=== PATIENT | male | born 1950 ===

== ENCOUNTER 2017-06-01 14:17 | Emergency (ER) | payer MEDICAID ==
[2017-06-01 14:40] VITALS: O2SAT 95
[2017-06-01 15:24] LABS: BASO % 0.2 % (0.0-2.0); EOS % 0.2 % (0.0-4.0); HEMATOCRIT 42.8 % (35.0-51.0); LYMPH % 19.1 % (20.0-40.0); MEAN CELL VOLUME 88.9 fL (80.0-94.0); MEAN CORPUSCULAR HEMOGLOBIN 30.2 pg (27.0-31.0); MEAN PLATELET VOLUME 8.2 fL (7.2-11.7); MONO # 0.5 K/uL (0.0-0.8); NRBC % 0.1 % (0.0-2.0); WHITE BLOOD COUNT 5.4 K/uL (4.8-10.8)
[2017-06-01 15:35] LABS: CHLORIDE 103 mmol/L (98-107)
[2017-06-01 15:36] LABS: POTASSIUM 3.8 mmol/L (3.6-5.2); SODIUM 141 mmol/L (132-148)
[2017-06-01 15:38] LABS: ALB/GLOB RATIO 1.2 (1.0-2.1); AST/SGOT 30 U/L (17-59); BILIRUBIN,TOTAL 1.4 mg/dL (0.2-1.3); CARBON DIOXIDE 25 mmol/L (22-30); GFR AFRICAN-AMERICAN > 60; TOTAL PROTEIN 6.7 g/dL (6.3-8.3)
[2017-06-01 15:39] LABS: ALKALINE PHOSPHATASE 49 U/L (38-126); ALT/SGPT 39 U/L (21-72); BLOOD UREA NITROGEN 20 mg/dL (9-20); GLUCOSE,RANDOM 107 mg/dL (75-110)
[2017-06-01 15:52] LABS: RBC URINE 2 /hpf (0-3); URINE BILIRUBIN NEGATIVE (NEGATIVE); URINE BLOOD NEGATIVE (NEGATIVE); URINE COLOR Yellow (YELLOW); URINE GLUCOSE (UA) NORMAL (Normal); URINE KETONE NEGATIVE (NEGATIVE); URINE LEUKOCYTE ESTERASE NEG Leu/uL (Negative); URINE PROTEIN NEGATIVE (NEGATIVE); URINE UROBILINOGEN NORMAL mg/dL (0.2-1.0); WBC URINE 1 /hpf (0-5)
[2017-06-01] MEDS ORDERED: Sodium Chloride 0.9% 500 ML IV ONE ×2 (16:02→16:19)
--- NOTE | 2017-06-01 16:11 | C.PDOC ---
History Of Present Illness 66 y/o male presents to ED with complaints of cramping abdominal pain since this morning that worsens with movement and with BMs. Patient denies fever, nausea, vomiting, diarrhea, dysuria, hematuria, sob, chest pain. Time Seen by Provider: 06/01/17 14:48 Chief Complaint (Nursing): Abdominal Pain History Per: Patient History/Exam Limitations: no limitations Onset/Duration Of Symptoms: Hrs Current Symptoms Are (Timing): Still Present Severity: Mild Past Medical History Reviewed: Historical Data, Nursing Documentation, Vital Signs Vital Signs: Last Vital Signs Temp 98.1 F 06/01/17 17:35 Pulse 59 L 06/01/17 17:35 Resp 20 06/01/17 17:35 BP 97/66 L 06/01/17 17:35 Pulse Ox 95 06/01/17 17:35 - Medical History PMH: HTN Family History: States: No Known Family Hx - Social History Hx Alcohol Use: No Hx Substance Use: No - Immunization History Hx Tetanus Toxoid Vaccination: No Hx Influenza Vaccination: No Hx Pneumococcal Vaccination: No Review Of Systems Except As Marked, All Systems Reviewed And Found Negative. Constitutional: Negative for: Fever, Chills Cardiovascular: Negative for: Chest Pain, Palpitations Respiratory: Negative for: Shortness of Breath Gastrointestinal: Positive for: Abdominal Pain. Negative for: Nausea, Vomiting , Diarrhea Genitourinary: Negative for: Dysuria, Hematuria Skin: Negative for: Rash Physical Exam - Physical Exam Appears: Well, Non-toxic, No Acute Distress Skin: Normal Color, Warm, Dry, No Rash Oral Mucosa: Moist Cardiovascular: Rhythm Regular Respiratory: Normal Breath Sounds, No Rales, No Rhonchi, No Wheezing Gastrointestinal/Abdominal: Bowel Sounds, Soft, Tenderness (mild TTP at epigastric and suprapubic areas), No Distention, No Guarding, No Rebound Back: Normal Inspection, No CVA Tenderness Neurological/Psych: Oriented x3 ED Course And Treatment - Laboratory Results Result Diagrams: 06/01/17 15:16 06/01/17 15:16 O2 Sat by Pulse Oximetry: 95 (RA) Pulse Ox Interpretation: Normal Progress Note: Blood work and UA ordered and reviewed. Patient given IV NS bolus, IV toradol. Reevaluation Time: 17:30 Reassessment Condition: Improved (On reassessment, patient is resting comfortably, in no pain/distress. ON exam, abdomen is soft and nontender. Blood work and UA unremarkable. Patient given Rx for bentyl, and was instructed to follow up with PMD/clinic in 1-2 days. He understands he should return to ED if symptoms worsen.) Disposition Counseled Patient/Family Regarding: Studies Performed, Diagnosis, Need For Followup, Rx Given - Disposition Referrals: [facility] at [facility] [Outside] Disposition: HOME/ ROUTINE Disposition Time: 17:30 Condition: STABLE Prescriptions: Dicyclomine [Bentyl] 20 mg PO Q6 PRN #15 tab PRN Reason: ABDOMINAL CRAMPING Instructions: Acute Diarrhea (ED), Abdominal Pain (ED) Forms: [employer] (Kinyarwanda) Print Language: IVORIAN - POA Present On Arrival: None - Clinical Impression Clinical Impression: Abdominal cramping - PA / CLINICAL SERVICES MANAGER / Resident Statement MD/DO has examined the patient and agrees with the treatment plan. - Scribe Statement The provider has reviewed the documentation as recorded by the Renaeibnaresh Carrillo All medical record entries made by the Zofia were at my direction and personally dictated by me. I have reviewed the chart and agree that the record accurately reflects my personal performance of the history, physical exam, medical decision making, and the department course for this patient. I have also personally directed, reviewed, and agree with the discharge instructions and disposition.
[2017-06-01 17:36] VITALS: BP 97/66; PULSE 59; RESP 20; TEMP 98.1
== END 2017-06-01 17:35 | disposition home or self-care (01) ==
LOC: C.ER 14:17
DX: R10.13 Epigastric pain (principal)
CPT/HCPCS: 80053; 81001; 83690; 85025; 96374; 99284; J1885; J7040

== ENCOUNTER 2018-04-26 21:05 | Inpatient (IN) | payer MEDICARE, MEDICAID ==
[2018-04-26] MEDS ORDERED: Sodium Chloride 0.9% 1,000 ML IV ONE (22:16)
--- NOTE | 2018-04-26 22:16 | C.PDOC ---
History Of Present Illness Patient presents to the ER with a complaint of intermittent abdominal pain for the past week that has worsened over the past 3 days. Denies fever, chills, nausea, or vomiting. Time Seen by Provider: 04/26/18 22:15 Chief Complaint (Nursing): Abdominal Pain History Per: Patient History/Exam Limitations: no limitations Onset/Duration Of Symptoms: Days, Intermittent Episodes Current Symptoms Are (Timing): Still Present Context: Other Severity: Moderate Pain Scale Rating Of: 4 Location Of Pain/Discomfort: RUQ Quality Of Discomfort: Unable To Describe Associated Symptoms: denies: Fever, Chills, Nausea, Vomiting Exacerbating Factors: None Alleviating Factors: None Recent travel outside of the [place]: No Additional History Per: Family Past Medical History Reviewed: Historical Data, Nursing Documentation, Vital Signs Vital Signs: Last Vital Signs Temp 98.5 F 04/27/18 00:19 Pulse 74 04/27/18 00:19 Resp 20 04/27/18 00:19 BP 138/73 04/27/18 00:19 Pulse Ox 95 04/27/18 00:19 - Medical History PMH: HTN Family History: States: No Known Family Hx - Social History Hx Alcohol Use: No Hx Substance Use: No - Immunization History Hx Tetanus Toxoid Vaccination: No Hx Influenza Vaccination: No Hx Pneumococcal Vaccination: No Review Of Systems Constitutional: Negative for: Fever, Chills Cardiovascular: Negative for: Chest Pain, Palpitations Respiratory: Negative for: Cough, Shortness of Breath Gastrointestinal: Positive for: Abdominal Pain. Negative for: Nausea, Vomiting Musculoskeletal: Negative for: Neck Pain Neurological: Negative for: Weakness, Numbness Psych: Negative for: Anxiety Physical Exam - Physical Exam Appears: Non-toxic Skin: Warm, Dry Head: Normacephalic Eye(s): bilateral: Normal Inspection Oral Mucosa: Moist Neck: Supple Chest: Symmetrical, No Tenderness Cardiovascular: Rhythm Regular Respiratory: No Rales, No Rhonchi, No Wheezing Gastrointestinal/Abdominal: Soft, Tenderness (RUQ), No Guarding, No Rebound Back: Normal Inspection Extremity: Normal ROM Extremity: Bilateral: Atraumatic Neurological/Psych: Oriented x3 Gait: Steady ED Course And Treatment - Laboratory Results Result Diagrams: 04/26/18 22:23 04/26/18 22:23 O2 Sat by Pulse Oximetry: 96 (room air) Pulse Ox Interpretation: Normal Progress Note: EKG, blood work, and urinalysis ordered. Protonix and IV fluids administered. Disposition Discussed With Dr.: Siva Edmondson Comment: acceptd the pt on and took over the care at 2:30 AM Doctor Will See Patient In The: Hospital Counseled Patient/Family Regarding: Studies Performed, Diagnosis - Disposition Referrals: Siva Edmondson MD [Primary Care Provider] - Disposition: HOSPITALIZED Disposition Time: 22:16 Condition: FAIR Forms: [employer] (Turkmen) - POA Present On Arrival: None - Clinical Impression Clinical Impression: Abdominal pain, Acute cholecystitis - Scribe Statement The provider has reviewed the documentation as recorded by the Scribe Flavio Chery All medical record entries made by the Scribe were at my direction and personally dictated by me. I have reviewed the chart and agree that the record accurately reflects my personal performance of the history, physical exam, medical decision making, and the department course for this patient. I have also personally directed, reviewed, and agree with the discharge instructions and disposition. Decision To Admit - Pt Status Changed To: Hospital Disposition Of: Inpatient - Admit Certification Admit to Inpatient:: After my assessment, the patient will require hospitalization for at least two midnights. This is because of the severity of symptoms shown, intensity of services needed, and/or the medical risk in this patient being treated as an outpatient. - InPatient: Physician Admission Certification:: After my assessment, the patient will require hospitalization for at least two midnights. This is because of the severity of symptoms shown, intensity of services needed, and/or the medical risk in this patient being treated as an outpatient. - . Bed Request Type: Regular Patient Diagnosis: Abdominal pain, Acute cholecystitis
[2018-04-26 22:29] LABS: BASO % 0.7 % (0.0-2.0); EOS % 0.6 % (0.0-4.0); LYMPH # 1.8 K/uL (1.0-4.3); LYMPH % 31.1 % (20.0-40.0); MEAN CELL VOLUME 90.7 fL (80.0-94.0); MEAN CORPUSCULAR HEMOGLOBIN 30.6 pg (27.0-31.0); MEAN CORPUSCULAR HGB CONC 33.7 g/dL (33.0-37.0); MEAN PLATELET VOLUME 8.3 fL (7.2-11.7); MONO # 0.5 K/uL (0.0-0.8); MONO % 9.5 % (0.0-10.0); NEUT # 3.3 K/uL (1.8-7.0); NEUT % 58.1 % (50.0-75.0); RBC 4.57 Mil/uL (4.40-5.90); RED CELL DISTRIBUTION WIDTH 13.5 % (11.5-14.5); WHITE BLOOD COUNT 5.7 K/uL (4.8-10.8)
[2018-04-26 22:38] LABS: INR 1.1; PROTHROMBIN TIME 11.6 SECONDS (9.7-12.2)
[2018-04-26 23:17] LABS: URINE AMORPHOUS SEDIMENT RARE /ul (<OCC); URINE BILIRUBIN NEGATIVE (NEGATIVE); URINE BLOOD NEGATIVE (NEGATIVE); URINE CLARITY Hazy (Clear); URINE COLOR Amber (YELLOW); URINE GLUCOSE (UA) NORMAL (Normal); URINE LEUKOCYTE ESTERASE NEG Leu/uL (Negative); URINE PROTEIN NEGATIVE (NEGATIVE)
[2018-04-26 23:48] LABS: ALB/GLOB RATIO 1.3 (1.0-2.1); ALBUMIN 3.8 g/dL (3.5-5.0); BLOOD UREA NITROGEN 18 mg/dL (9-20); CALCIUM 9.1 mg/dl (8.6-10.4); GFR AFRICAN-AMERICAN > 60; GFR NON-AFRICAN AMERICAN > 60
[2018-04-26 23:49] LABS: ALT/SGPT 871 U/L (21-72); AST/SGOT 822 U/L (17-59); LIPASE 105 U/L (23-300)
[2018-04-27] MEDS ORDERED: Iodixanol 320 MG/ML 100 ML BOTTLE IV ONE (00:32)
[2018-04-27] MEDS: Dextrose 5%/0.9% NS 1,000 ML IV SCH ×2 (02:47→18:03)
[2018-04-27] MEDS ORDERED: Dextrose 5%/0.9% NS 1,000 ML IV ONE (02:51)
[2018-04-27] MEDS ORDERED: (Novolin R) Insulin Human Regular 100 units/ml vial SC SCH (07:30)
--- NOTE | 2018-04-27 07:48 | CP.PCM.PN ---
Subjective - Date & Time of Evaluation Date of Evaluation: 04/27/18 Time of Evaluation: 07:47 - Subjective Subjective: cw acute cholecystitis bilirubin up to 2.2 hida ordered will plan odell gb Objective - Vital Signs/Intake and Output Vital Signs (last 24 hours): Temp Pulse Resp BP Pulse Ox 97.4 F L 56 L 20 145/79 96 04/27/18 03:43 04/27/18 03:43 04/27/18 03:43 04/27/18 03:43 04/27/18 03:43 - Medications Medications: Current Medications Brimonidine Tartrate (Alphagan 0.2% Opht) 1 ml OU BID [facility] Home Med (Amlodipine) 5 mg PO DAILY [facility] Home Med (Losartan) 50 mg PO DAILY [facility] Dextrose/Sodium Chloride (Dextrose 5%/0.9% Ns 1000 Ml) 1,000 mls @ 80 mls/hr IV .[id number] [facility] Last Admin: 04/27/18 02:47 Dose: 80 mls/hr Insulin Human Regular (Novolin R) 1 unit SC ACHS LAURA PRN Reason: Protocol Last Admin: 04/27/18 07:43 Dose: Not Given Metformin HCl (Glucophage Xr) 750 mg PO DAILY [facility] Morphine Sulfate (Morphine) 2 mg IVP Q4H PRN PRN Reason: Pain, moderate (4-7) Last Admin: 04/27/18 02:54 Dose: 2 mg Pantoprazole Sodium (Protonix Inj) 40 mg IVP DAILY [facility] - Labs Labs: 04/26/18 22:23 04/26/18 22:23 PT 11.6 SECONDS (9.7-12.2) 04/26/18 22:23 INR 1.1 04/26/18 22:23 APTT 29 SECONDS (21-34) 04/26/18 22:23
--- NOTE | 2018-04-27 08:17 | CT ---
Date of service: 04/27/2018 PROCEDURE: CT Abdomen and Pelvis without intravenous contrast HISTORY: Right upper quadrant abdominal pain. Elevated liver enzymes. COMPARISON: None. TECHNIQUE: Multiple contiguous axial images were performed through the abdomen and pelvis with the use of intravenous contrast. Subsequently, sagittal and coronal reformatted images were obtained. Radiation dose: Total exam DLP = 603 mGy-cm. This CT exam was performed using one or more of the following dose reduction techniques: Automated exposure control, adjustment of the mA and/or kV according to patient size, and/or use of iterative reconstruction technique. FINDINGS: LOWER THORAX: Bibasilar infiltrates with areas of hyperlucency and peribronchial cuffing present consistent with atelectasis or pneumonia with possible bronchitis. Clinical correlation. Right lower lobe pneumatocele. Cardiomegaly. Small hiatal hernia. LIVER: Enlarged fatty liver. GALLBLADDER AND BILE DUCTS: Contracted gallbladder with gallbladder wall thickening and pericholecystic fluid. Clinical correlation. PANCREAS: Unremarkable. No gross lesion or ductal dilatation. SPLEEN: Splenic calcification. ADRENALS: Unremarkable. No mass. KIDNEYS AND URETERS: Bilateral renal hypodensities, too small to adequately characterize. VASCULATURE: Unremarkable. No aortic aneurysm. BOWEL: Nonspecific fluid-filled stomach and small bowel loops. This may represent an ileus versus gastroenteritis/ enterirtis versus slow transit versus peristalsis. Clinical correlation. Diverticulosis. APPENDIX: Appendix is seen and is top normal in thickness measuring 9 millimeters. Clinical correlation. PERITONEUM: Unremarkable. No free fluid. No free air. LYMPH NODES: Unremarkable. No enlarged lymph nodes. BLADDER: Partially distended urinary bladder with bladder wall thickening. Correlation with urinalysis is recommended. REPRODUCTIVE: Enlarged prostate gland with calcification. BONES: No acute fracture. OTHER FINDINGS: Bilateral fat containing inguinal hernias. Fat containing umbilical hernia. Possibly urachal remnant. IMPRESSION: 1. Contracted gallbladder with gallbladder wall thickening and pericholecystic fluid. Clinical correlation. If there is concern for acute cholecystitis, consider correlation with right upper quadrant abdominal ultrasound. 2. Enlarged fatty liver. 3. Mildly prominent appendix measuring 9 millimeters. Clinical correlation. Continued interval follow-up is recommended clinically indicated. 4. Partially distended urinary bladder with bladder wall thickening. Clinical correlation. 5. Enlarged prostate gland with calcification. 6. Bibasilar infiltrates with areas of hyperlucency and peribronchial cuffing present consistent with atelectasis or pneumonia with possible bronchitis. Clinical correlation. Right lower lobe pneumatocele. Cardiomegaly. 7. Small hiatal hernia. Additional findings as above. These findings were preliminarily reported at 1:33 a.m. on 04/27/[address] Yordan Maurer from [facility].
--- NOTE | 2018-04-27 09:45 | US ---
Date of service: 04/27/2018 HISTORY: ELEVATED LIVER PANEL, ACUTE CHOLECYSTITIS COMPARISON: April 27, 2018. CT abdomen and pelvis. TECHNIQUE: Sonographic evaluation of the right upper quadrant of the abdomen. FINDINGS: LIVER: Measures 10.7 cm in length. Hepatopedal blood flow. Fatty infiltration manifest ultrasonographically as increased echogenicity of the liver parenchyma. No mass. No intrahepatic bile duct dilatation. GALLBLADDER: Collapse, contracted Gallbladder accentuating gallbladder wall thickness. No gallstones or pericholecystic fluid. Sonographic Kelsey sign was not elicited. COMMON BILE DUCT: Measures 3.4 mm. No stones. No dilatation. PANCREAS: Unremarkable as visualized. No mass. No ductal dilatation. RIGHT KIDNEY: Measures 5 x 10.1 cm in length. Normal echogenicity. No calculus, mass, or hydronephrosis. AORTA: No aneurysmal dilatation. IVC: Unremarkable. OTHER FINDINGS: None . IMPRESSION: Contracted gallbladder accentuating gallbladder wall thickness. No acute gallbladder abnormalities. Hepatic steatosis. No focal masses. No intrahepatic bile duct dilatation or perihepatic ascites.
[2018-04-27] MEDS: Brimonidine 0.2% Opth Sol (5ml) OU SCH ×2 (10:39→21:52)
--- NOTE | 2018-04-27 10:42 | NM ---
Date of service: 04/27/2018 PROCEDURE: Nuclear Medicine Hepatobiliary Scan HISTORY: cholecystitis with elevated bilirubin COMPARISON: April 27, 2018. Abdominal ultrasound TECHNIQUE: 6.1 mCi of technetium 99m Mebrofenin was administered intravenously. Planar images of the abdomen were obtained at 5 min intervals to 60 mins. Delayed images were also obtained. FINDINGS: LIVER: Timely and homogenous uptake. COMMON BILE DUCT: identified at 15 mins. GALLBLADDER: identified at 15 mins. SMALL BOWEL: Identified at 65 mins. IMPRESSION: Normal Hepatobiliary Scan. The cystic duct is patent.
[2018-04-27] MEDS: (Novolin R) Insulin Human Regular 100 units/ml vial SC SCH ×3 (12:00→21:42)
--- NOTE | 2018-04-27 12:21 | CP.PCM.PN ---
Subjective - Date & Time of Evaluation Date of Evaluation: 04/27/18 Time of Evaluation: 12:20 - Subjective Subjective: follow up studies no gall stones on US Hida normal no plans for OR Objective - Vital Signs/Intake and Output Vital Signs (last 24 hours): Temp Pulse Resp BP Pulse Ox 97.4 F L 53 L 20 127/78 95 04/27/18 07:00 04/27/18 07:00 04/27/18 07:00 04/27/18 07:00 04/27/18 07:00 - Medications Medications: Current Medications Amlodipine Besylate (Norvasc) 5 mg PO DAILY [facility] Last Admin: 04/27/18 10:04 Dose: Not Given Brimonidine Tartrate (Alphagan 0.2% Opht) 0 ml OU Q12 [facility] Last Admin: 04/27/18 10:39 Dose: 1 drop Dextrose/Sodium Chloride (Dextrose 5%/0.9% Ns 1000 Ml) 1,000 mls @ 80 mls/hr IV .[id number] [facility] Last Admin: 04/27/18 02:47 Dose: 80 mls/hr Insulin Human Regular (Novolin R) 0 unit SC ACHS LAURA PRN Reason: Protocol Last Admin: 04/27/18 12:00 Dose: Not Given Losartan Potassium (Cozaar) 50 mg PO DAILY [facility] Last Admin: 04/27/18 10:04 Dose: Not Given Metformin HCl (Glucophage Xr) 750 mg PO DAILY [facility] Last Admin: 04/27/18 10:04 Dose: Not Given Morphine Sulfate (Morphine) 2 mg IVP Q4H PRN PRN Reason: Pain, moderate (4-7) Last Admin: 04/27/18 02:54 Dose: 2 mg Pantoprazole Sodium (Protonix Inj) 40 mg IVP DAILY [facility] Last Admin: 04/27/18 10:39 Dose: 40 mg - Labs Labs: 04/26/18 22:23 04/26/18 22:23 PT 11.6 SECONDS (9.7-12.2) 04/26/18 22:23 INR 1.1 04/26/18 22:23 APTT 29 SECONDS (21-34) 04/26/18 22:23
--- NOTE | 2018-04-27 13:20 | CP.PCM.HP ---
History of Present Illness - History of Present Illness History of Present Illness: 67 years old male with PMH significant for HTN and Type II DM who presents to ER complaining of RUQ pain. Patient denies fever, chills, headache, chest pain, shortness of breath, nausea, vomiting, diarrhea or urinary symptoms. Present on Admission - Present on Admission Any Indicators Present on Admission: No Review of Systems - Constitutional Constitutional: Headache Past Patient History - Infectious Disease Hx of Infectious Diseases: None - Past Medical History & Family History Past Medical History?: Yes - Past Social History Smoking Status: Never Smoked - CARDIAC Hx Cardiac Disorders: Yes Hx Hypertension: Yes - PULMONARY Hx Respiratory Disorders: No - NEUROLOGICAL Hx Neurological Disorder: No - HEENT Hx HEENT Problems: Yes Hx Glaucoma: Yes (BOTH EYES) - RENAL Hx Chronic Kidney Disease: No - ENDOCRINE/METABOLIC Hx Endocrine Disorders: Yes Hx Diabetes Mellitus Type 2: Yes - HEMATOLOGICAL/ONCOLOGICAL Hx Blood Disorders: No - INTEGUMENTARY Hx Dermatological Problems: No - MUSCULOSKELETAL/RHEUMATOLOGICAL Hx Musculoskeletal Disorders: Yes Hx Back Pain: Yes Hx Falls: No - GASTROINTESTINAL Hx Gastrointestinal Disorders: No - GENITOURINARY/GYNECOLOGICAL Hx Genitourinary Disorders: No - PSYCHIATRIC Hx Psychophysiologic Disorder: No Hx Substance Use: No - SURGICAL HISTORY Hx Surgeries: No - ANESTHESIA Hx Anesthesia: No Meds Allergies/Adverse Reactions: Allergies Allergy/AdvReac Type Severity Reaction Status Date / Time No Known Allergies Allergy Unverified 04/26/18 21:16 Physical Exam - Constitutional Appears: Well, Non-toxic, No Acute Distress - Head Exam Head Exam: ATRAUMATIC, NORMAL INSPECTION, NORMOCEPHALIC - Eye Exam Eye Exam: EOMI, Normal appearance, PERRL - ENT Exam ENT Exam: Mucous Membranes Moist, Normal Exam - Neck Exam Neck exam: Positive for: Full Rom, Normal Inspection - Respiratory Exam Respiratory Exam: Clear to Auscultation Bilateral, NORMAL BREATHING PATTERN - Cardiovascular Exam Cardiovascular Exam: REGULAR RHYTHM, +S1, +S2 - GI/Abdominal Exam GI & Abdominal Exam: Normal Bowel Sounds, Soft - Extremities Exam Extremities exam: Positive for: full ROM, normal inspection - Back Exam Back exam: NORMAL INSPECTION - Neurological Exam Neurological exam: Alert, CN II-XII Intact, Normal Gait, Oriented x3, Reflexes Normal - Psychiatric Exam Psychiatric exam: Normal Affect, Normal Mood - Skin Skin Exam: Intact, Normal Color Results - Vital Signs Recent Vital Signs: Last Vital Signs Temp 97.4 F L 04/27/18 07:00 Pulse 53 L 04/27/18 07:00 Resp 20 04/27/18 07:00 BP 127/78 04/27/18 07:00 Pulse Ox 95 04/27/18 07:00 - Labs Result Diagrams: 04/26/18 22:23 04/26/18 22:23 Labs: Laboratory Results - last 24 hr 04/26/18 04/26/18 04/26/18 22:16 22:23 22:23 WBC 5.7 RBC 4.57 Hgb 14.0 Hct 41.5 MCV 90.7 MCH 30.6 MCHC 33.7 RDW 13.5 Plt Count 237 MPV 8.3 Neut % (Auto) 58.1 Lymph % (Auto) 31.1 [place] % (Auto) 9.5 Eos % (Auto) 0.6 Baso % (Auto) 0.7 Neut # (Auto) 3.3 Lymph # (Auto) 1.8 [place] # (Auto) 0.5 Eos # (Auto) 0.0 Baso # (Auto) 0.0 PT 11.6 INR 1.1 APTT 29 Sodium Potassium Chloride Carbon Dioxide Anion Gap BUN Creatinine Est GFR ( Amer) Est GFR (Non-Af Amer) POC Glucose (mg/dL) Random Glucose Calcium Total Bilirubin AST ALT Alkaline Phosphatase Total Protein Albumin Globulin Albumin/Globulin Ratio Lipase Urine Color [place] Urine Clarity Hazy Urine pH 7.0 Ur Specific [place] 1.019 Urine Protein Negative Urine Glucose (UA) Normal Urine Ketones Negative Urine Blood Negative Urine Nitrate Negative Urine Bilirubin Negative Urine Urobilinogen 4.0 Ur Leukocyte Esterase Neg Urine WBC (Auto) 2 Urine RBC (Auto) 6 H Amorphous Sediment Rare H Urine Yeast (Budding) Occ H 04/26/18 04/27/18 04/27/18 22:23 06:29 11:05 WBC RBC Hgb Hct MCV MCH MCHC RDW Plt Count MPV Neut % (Auto) Lymph % (Auto) [place] % (Auto) Eos % (Auto) Baso % (Auto) Neut # (Auto) Lymph # (Auto) [place] # (Auto) Eos # (Auto) Baso # (Auto) PT INR APTT Sodium 144 Potassium 4.4 Chloride 105 Carbon Dioxide 29 Anion Gap 14 BUN 18 Creatinine 1.0 Est GFR ( Amer) > 60 Est GFR (Non-Af Amer) > 60 POC Glucose (mg/dL) 125 H 146 H Random Glucose 130 H Calcium 9.1 Total Bilirubin 2.2 H AST 822 H ALT 871 H D Alkaline Phosphatase 98 Total Protein 6.7 Albumin 3.8 Globulin 2.9 Albumin/Globulin Ratio 1.3 Lipase 105 Urine Color Urine Clarity Urine pH Ur Specific [place] Urine Protein Urine Glucose (UA) Urine Ketones Urine Blood Urine Nitrate Urine Bilirubin Urine Urobilinogen Ur Leukocyte Esterase Urine WBC (Auto) Urine RBC (Auto) Amorphous Sediment Urine Yeast (Budding) Assessment & Plan (1) Acute cholecystitis Assessment and Plan: US of Abdomen: No Gallstones. CT Abdomen: Contracted Gallbladder. HIDA Scan: Normal Biliary duct. IV Fluids. GI evaluation. Surgical evaluation. As per Surgeon, no surgical intervention at this time. Awaiting GI evaluation. Status: Acute Priority: High (2) Elevated transaminase level Assessment and Plan: Ferritin. Iron. TIBC. GGT. Hepatitits A, B and C Profile. Status: Acute (3) Diabetes mellitus Assessment and Plan: Accucheck with Insulin coverage. Continue same treatment. Status: Acute (4) Hypertension Assessment and Plan: Continue same home treatment. Status: Acute
--- NOTE | 2018-04-27 15:23 | CP.PCM.CON ---
History of Present Illness - History of Present Illness History of Present Illness: CC: abdominal pain HPI: GI consult requested for this 67 year old man admitted with 1 week history of sharp post prandial RUQ pain and elevated transaminases. Sono- contracted GB , nl CBD, fatty liver. CT- contracted GB with mild fluid surrounding. HIDA- normal. Surgery evaluated patient and no surgical intervention is planned. Occasional loose BMs noted, non bloody. Denies history of peptic disease. Denies fevers, chills, myalgias. Feels weak. Review of Systems - Constitutional Constitutional: As Per HPI - EENT Eyes: absent: Change in Vision - Cardiovascular Cardiovascular: absent: Chest Pain, Dyspnea - Respiratory Respiratory: absent: Cough, Dyspnea - Gastrointestinal Gastrointestinal: Abdominal Pain, Loose Stools. absent: Constipation, Hematochezia, Melena, Nausea - Genitourinary Genitourinary: absent: Difficulty Urinating - Musculoskeletal Musculoskeletal: absent: Arthralgias, Back Pain - Integumentary Integumentary: absent: New Lesions - Neurological Neurological: absent: Abnormal Gait - Psychiatric Psychiatric: absent: Abnormal Sleep Pattern, Behavioral Changes - Endocrine Endocrine: Fatigue. absent: Polyuria - Hematologic/Lymphatic Hematologic: absent: Easy Bleeding Past Patient History - Infectious Disease Hx of Infectious Diseases: None - Past Medical History & Family History Past Medical History?: Yes - Past Social History Smoking Status: Never Smoked - CARDIAC Hx Cardiac Disorders: Yes Hx Hypertension: Yes - PULMONARY Hx Respiratory Disorders: No - NEUROLOGICAL Hx Neurological Disorder: No - HEENT Hx HEENT Problems: Yes Hx Glaucoma: Yes (BOTH EYES) - RENAL Hx Chronic Kidney Disease: No - ENDOCRINE/METABOLIC Hx Endocrine Disorders: Yes Hx Diabetes Mellitus Type 2: Yes - HEMATOLOGICAL/ONCOLOGICAL Hx Blood Disorders: No - INTEGUMENTARY Hx Dermatological Problems: No - MUSCULOSKELETAL/RHEUMATOLOGICAL Hx Musculoskeletal Disorders: Yes Hx Back Pain: Yes Hx Falls: No - GASTROINTESTINAL Hx Gastrointestinal Disorders: No - GENITOURINARY/GYNECOLOGICAL Hx Genitourinary Disorders: No - PSYCHIATRIC Hx Psychophysiologic Disorder: No Hx Substance Use: No - SURGICAL HISTORY Hx Surgeries: No - ANESTHESIA Hx Anesthesia: No Meds Allergies/Adverse Reactions: Allergies Allergy/AdvReac Type Severity Reaction Status Date / Time No Known Allergies Allergy Unverified 04/26/18 21:16 - Medications Medications: Current Medications Amlodipine Besylate (Norvasc) 5 mg PO DAILY [facility] Last Admin: 04/27/18 10:04 Dose: Not Given Brimonidine Tartrate (Alphagan 0.2% Opht) 0 ml OU Q12 [facility] Last Admin: 04/27/18 10:39 Dose: 1 drop Dextrose/Sodium Chloride (Dextrose 5%/0.9% Ns 1000 Ml) 1,000 mls @ 80 mls/hr IV .[id number] [facility] Last Admin: 04/27/18 02:47 Dose: 80 mls/hr Insulin Human Regular (Novolin R) 0 unit SC ACHS [facility] PRN Reason: Protocol Last Admin: 04/27/18 12:00 Dose: Not Given Losartan Potassium (Cozaar) 50 mg PO DAILY [facility] Last Admin: 04/27/18 10:04 Dose: Not Given Metformin HCl (Glucophage Xr) 750 mg PO DAILY [facility] Last Admin: 04/27/18 10:04 Dose: Not Given Morphine Sulfate (Morphine) 2 mg IVP Q4H PRN PRN Reason: Pain, moderate (4-7) Last Admin: 04/27/18 02:54 Dose: 2 mg Pantoprazole Sodium (Protonix Inj) 40 mg IVP DAILY [facility] Last Admin: 04/27/18 10:39 Dose: 40 mg Physical Exam - Constitutional Appears: Well, No Acute Distress - Head Exam Head Exam: ATRAUMATIC, NORMOCEPHALIC - Eye Exam Eye Exam: Normal appearance. absent: Scleral icterus - ENT Exam ENT Exam: Normal Exam - Neck Exam Neck exam: Positive for: Normal Inspection - Respiratory Exam Respiratory Exam: Clear to Auscultation Bilateral, NORMAL BREATHING PATTERN - Cardiovascular Exam Cardiovascular Exam: REGULAR RHYTHM - GI/Abdominal Exam GI & Abdominal Exam: Soft. absent: Mass, Organomegaly, Tenderness Additional comments: negative [place] sign - Rectal Exam Rectal Exam: Deferred - Extremities Exam Extremities exam: Positive for: normal inspection - Back Exam Back exam: NORMAL INSPECTION - Neurological Exam Neurological exam: Alert, Oriented x3 - Psychiatric Exam Psychiatric exam: Normal Affect, Normal Mood - Skin Skin Exam: Warm Results - Vital Signs Recent Vital Signs: Last Vital Signs Temp 97.4 F L 04/27/18 07:00 Pulse 53 L 04/27/18 07:00 Resp 20 04/27/18 07:00 BP 127/78 04/27/18 07:00 Pulse Ox 95 04/27/18 07:00 - Labs Result Diagrams: 04/26/18 22:23 04/26/18 22:23 Labs: Laboratory Results - last 24 hr 04/26/18 04/26/18 04/26/18 22:16 22:23 22:23 WBC 5.7 RBC 4.57 Hgb 14.0 Hct 41.5 MCV 90.7 MCH 30.6 MCHC 33.7 RDW 13.5 Plt Count 237 MPV 8.3 Neut % (Auto) 58.1 Lymph % (Auto) 31.1 Dare % (Auto) 9.5 Eos % (Auto) 0.6 Baso % (Auto) 0.7 Neut # (Auto) 3.3 Lymph # (Auto) 1.8 Dare # (Auto) 0.5 Eos # (Auto) 0.0 Baso # (Auto) 0.0 PT 11.6 INR 1.1 APTT 29 Sodium Potassium Chloride Carbon Dioxide Anion Gap BUN Creatinine Est GFR ( Amer) Est GFR (Non-Af Amer) POC Glucose (mg/dL) Random Glucose Calcium Total Bilirubin AST ALT Alkaline Phosphatase Total Protein Albumin Globulin Albumin/Globulin Ratio Lipase Urine Color [place] Urine Clarity Hazy Urine pH 7.0 Ur Specific [place] 1.019 Urine Protein Negative Urine Glucose (UA) Normal Urine Ketones Negative Urine Blood Negative Urine Nitrate Negative Urine Bilirubin Negative Urine Urobilinogen 4.0 Ur Leukocyte Esterase Neg Urine WBC (Auto) 2 Urine RBC (Auto) 6 H Amorphous Sediment Rare H Urine Yeast (Budding) Occ H 04/26/18 04/27/18 04/27/18 22:23 06:29 11:05 WBC RBC Hgb Hct MCV MCH MCHC RDW Plt Count MPV Neut % (Auto) Lymph % (Auto) Dare % (Auto) Eos % (Auto) Baso % (Auto) Neut # (Auto) Lymph # (Auto) Dare # (Auto) Eos # (Auto) Baso # (Auto) PT INR APTT Sodium 144 Potassium 4.4 Chloride 105 Carbon Dioxide 29 Anion Gap 14 BUN 18 Creatinine 1.0 Est GFR ( Amer) > 60 Est GFR (Non-Af Amer) > 60 POC Glucose (mg/dL) 125 H 146 H Random Glucose 130 H Calcium 9.1 Total Bilirubin 2.2 H AST 822 H ALT 871 H D Alkaline Phosphatase 98 Total Protein 6.7 Albumin 3.8 Globulin 2.9 Albumin/Globulin Ratio 1.3 Lipase 105 Urine Color Urine Clarity Urine pH Ur Specific [place] Urine Protein Urine Glucose (UA) Urine Ketones Urine Blood Urine Nitrate Urine Bilirubin Urine Urobilinogen Ur Leukocyte Esterase Urine WBC (Auto) Urine RBC (Auto) Amorphous Sediment Urine Yeast (Budding) Assessment & Plan (1) Abdominal pain Assessment and Plan: RUQ pain with LFTs. Suspect patient passed a stone. No stones demonstrated on radiologic studies at present. Pain has features typical of biliary pain. Monitor LFTs and abdominal exam Surgical consult appreciated Status: Acute (2) Diabetes mellitus Status: Acute (3) Elevated transaminase level Assessment and Plan: Patient perhaps passed a stone R/O Hepatitis F/U LFTs, chack Hepaitis profile Status: Acute (4) Hypertension Status: Acute - Date & Time Date: 04/27/18 Time: 15:27
[2018-04-27] MEDS ORDERED: Latanoprost 2.5 ml Opht Soln OU SCH (23:15)
[2018-04-27] MEDS: Dorzolamide 2% Opht Sol 10ml OU SCH (23:24)
[2018-04-27] MEDS: Latanoprost 2.5 ml Opht Soln OU SCH (23:24)
[2018-04-27 23:54] LABS: BASO % 0.8 % (0.0-2.0); EOS # 0.1 K/uL (0.0-0.7); EOS % 2.7 % (0.0-4.0); HEMOGLOBIN 13.9 g/dL (12.0-18.0); LYMPH # 1.6 K/uL (1.0-4.3); LYMPH % 42.5 % (20.0-40.0); MEAN CELL VOLUME 90.4 fL (80.0-94.0); MEAN CORPUSCULAR HEMOGLOBIN 31.3 pg (27.0-31.0); MEAN CORPUSCULAR HGB CONC 34.7 g/dL (33.0-37.0); MONO # 0.4 K/uL (0.0-0.8); MONO % 11.9 % (0.0-10.0); NEUT # 1.5 K/uL (1.8-7.0); NEUT % 42.1 % (50.0-75.0); NRBC % 0.1 % (0.0-2.0); RBC 4.42 Mil/uL (4.40-5.90); RED CELL DISTRIBUTION WIDTH 13.9 % (11.5-14.5); WHITE BLOOD COUNT 3.7 K/uL (4.8-10.8)
[2018-04-28 00:21] LABS: IRON 227 ug/dL (49-181)
[2018-04-28 00:32] LABS: ALB/GLOB RATIO 1.2 (1.0-2.1); ALBUMIN 3.3 g/dL (3.5-5.0); ALT/SGPT 653 U/L (21-72); AST/SGOT 294 U/L (17-59); BLOOD UREA NITROGEN 10 mg/dL (9-20); CALCIUM 8.6 mg/dl (8.6-10.4); GFR AFRICAN-AMERICAN > 60; GFR NON-AFRICAN AMERICAN > 60
[2018-04-28 00:38] LABS: % IRON SATURATION 83 (20-55); TOTAL IRON BINDING CAPACITY 273 ug/dL (250-450)
[2018-04-28 01:05] LABS: HEPATITIS B SURFACE AG Negative (NEGATIVE)
[2018-04-28 01:10] LABS: HEPATITIS B CORE AB NEGATIVE (NEGATIVE)
[2018-04-28 01:23] LABS: HEPATITIS C ANTIBODY NEGATIVE (NEGATIVE)
[2018-04-28] MEDS: Dextrose 5%/0.9% NS 1,000 ML IV SCH ×3 (05:51→17:09)
[2018-04-28] MEDS: (Novolin R) Insulin Human Regular 100 units/ml vial SC SCH ×4 (06:43→21:06)
[2018-04-28] MEDS: Brimonidine 0.2% Opth Sol (5ml) OU SCH ×2 (09:30→21:24)
[2018-04-28] MEDS: Dorzolamide 2% Opht Sol 10ml OU SCH ×3 (09:34→17:38)
--- NOTE | 2018-04-28 10:38 | CP.PCM.PN ---
Subjective - Date & Time of Evaluation Date of Evaluation: 04/28/18 Time of Evaluation: 10:20 - Subjective Subjective: F/u abdom pain present Reports feeling better.. No RUQ pain. Denies fever, chills, SZ, LOC MOSS, Cp, SOB, RB, melena, Cough Objective - Vital Signs/Intake and Output Vital Signs (last 24 hours): Temp Pulse Resp BP Pulse Ox 97.8 F 61 20 120/75 96 04/28/18 07:00 04/28/18 09:30 04/28/18 07:00 04/28/18 09:30 04/28/18 07:00 Intake and Output: 04/28/18 04/28/18 06:59 18:59 Output Total 350 Balance -350 - Medications Medications: Current Medications Amlodipine Besylate (Norvasc) 5 mg PO DAILY [facility] Last Admin: 04/28/18 09:32 Dose: 5 mg Brimonidine Tartrate (Alphagan 0.2% Opht) 0 ml OU Q12 [facility] Last Admin: 04/28/18 09:30 Dose: 1 drop Dorzolamide HCl (Trusopt) 0 ml OU TID [facility] Last Admin: 04/28/18 09:34 Dose: 1 drop Dextrose/Sodium Chloride (Dextrose 5%/0.9% Ns 1000 Ml) 1,000 mls @ 80 mls/hr IV .[id number] [facility] Last Admin: 04/28/18 07:36 Dose: 80 mls/hr Insulin Human Regular (Novolin R) 0 unit SC ACHS [facility] PRN Reason: Protocol Last Admin: 04/28/18 06:43 Dose: Not Given Latanoprost (Xalatan Opht) 0 ml OU HS [facility] Last Admin: 04/27/18 23:24 Dose: 2.5 ml Losartan Potassium (Cozaar) 50 mg PO DAILY [facility] Last Admin: 04/28/18 09:32 Dose: 50 mg Metformin HCl (Glucophage Xr) 750 mg PO DAILY [facility] Last Admin: 04/28/18 09:33 Dose: 750 mg Morphine Sulfate (Morphine) 2 mg IVP Q4H PRN PRN Reason: Pain, moderate (4-7) Last Admin: 04/27/18 02:54 Dose: 2 mg Pantoprazole Sodium (Protonix Inj) 40 mg IVP DAILY [facility] Last Admin: 04/28/18 09:30 Dose: 40 mg Timolol Maleate (Timoptic 0.5% Ophth Soln) 0 drop OU BID [facility] Last Admin: 04/28/18 09:40 Dose: 1 drop - Labs Labs: 04/27/18 23:48 04/27/18 23:48 PT 11.6 SECONDS (9.7-12.2) 04/26/18 22:23 INR 1.1 04/26/18 22:23 APTT 29 SECONDS (21-34) 04/26/18 22:23 - Constitutional Appears: Well - Neck Exam Neck Exam: Full ROM - Respiratory Exam Respiratory Exam: Clear to Ausculation Bilateral - Cardiovascular Exam Cardiovascular Exam: RRR - GI/Abdominal Exam GI & Abdominal Exam: Soft, Normal Bowel Sounds. absent: Guarding, Tenderness, Mass - Neurological Exam Neurological Exam: Oriented x3 Assessment and Plan (1) Abdominal pain Assessment & Plan: Consider cholecystitis- imaging shows contracted GB and thick wall, and chaz- fluid. Consider passed stone- but no GB stones notes. CBD is not enlarged. HIDA is neg,. Hep profile is negative. NO LABS AVAILABLE FOR TODAY. REC: Check labs, surgery follow up, consider MRCP, consider ALEJANDRO, AMA,ferritin Status: Acute (2) Diabetes mellitus Status: Acute (3) Elevated transaminase level Assessment & Plan: As above. Status: Acute
[2018-04-28 11:50] LABS: ALB/GLOB RATIO 1.5 (1.0-2.1); ALBUMIN 3.7 g/dL (3.5-5.0); ALT/SGPT 586 U/L (21-72); AST/SGOT 210 U/L (17-59); BLOOD UREA NITROGEN 10 mg/dL (9-20); GFR AFRICAN-AMERICAN > 60; GFR NON-AFRICAN AMERICAN > 60
[2018-04-28 13:19] LABS: HEPATITIS A TOTAL Antibody Positive (NEGATIVE)
--- NOTE | 2018-04-28 15:03 | CP.PCM.PN ---
Subjective - Date & Time of Evaluation Date of Evaluation: 04/28/18 Time of Evaluation: 15:02 - Subjective Subjective: Surgery: Dr. Hebert Pt seen and examined. Resting comfortably in bed. Pain controlled. No N/V/D. Objective - Vital Signs/Intake and Output Vital Signs (last 24 hours): Temp Pulse Resp BP Pulse Ox 97.8 F 61 20 120/75 96 04/28/18 07:00 04/28/18 09:30 04/28/18 07:00 04/28/18 09:30 04/28/18 07:00 Intake and Output: 04/28/18 04/28/18 06:59 18:59 Intake Total 860 Output Total 350 Balance -350 860 - Medications Medications: Current Medications Amlodipine Besylate (Norvasc) 5 mg PO DAILY [facility] Last Admin: 04/28/18 09:32 Dose: 5 mg Brimonidine Tartrate (Alphagan 0.2% Opht) 0 ml OU Q12 [facility] Last Admin: 04/28/18 09:30 Dose: 1 drop Dorzolamide HCl (Trusopt) 0 ml OU TID [facility] Last Admin: 04/28/18 13:22 Dose: 1 drop Heparin Sodium (Porcine) (Heparin) 5,000 units SC Q12 [facility] Last Admin: 04/28/18 13:09 Dose: 5,000 units Dextrose/Sodium Chloride (Dextrose 5%/0.9% Ns 1000 Ml) 1,000 mls @ 80 mls/hr IV .[id number] [facility] Last Admin: 04/28/18 07:36 Dose: 80 mls/hr Insulin Human Regular (Novolin R) 0 unit SC ACHS [facility] PRN Reason: Protocol Last Admin: 04/28/18 12:30 Dose: 2 units Latanoprost (Xalatan Opht) 0 ml OU HS [facility] Last Admin: 04/27/18 23:24 Dose: 2.5 ml Losartan Potassium (Cozaar) 50 mg PO DAILY [facility] Last Admin: 04/28/18 09:32 Dose: 50 mg Metformin HCl (Glucophage Xr) 750 mg PO DAILY [facility] Last Admin: 04/28/18 09:33 Dose: 750 mg Morphine Sulfate (Morphine) 2 mg IVP Q4H PRN PRN Reason: Pain, moderate (4-7) Last Admin: 04/27/18 02:54 Dose: 2 mg Pantoprazole Sodium (Protonix Inj) 40 mg IVP DAILY [facility] Last Admin: 04/28/18 09:30 Dose: 40 mg Timolol Maleate (Timoptic 0.5% Ophth Soln) 0 drop OU BID [facility] Last Admin: 04/28/18 09:40 Dose: 1 drop - Labs Labs: 04/27/18 23:48 04/28/18 11:21 PT 11.6 SECONDS (9.7-12.2) 04/26/18 22:23 INR 1.1 04/26/18 22:23 APTT 29 SECONDS (21-34) 04/26/18 22:23 - Constitutional Appears: Non-toxic, No Acute Distress - Head Exam Head Exam: ATRAUMATIC, NORMOCEPHALIC - Eye Exam Eye Exam: EOMI - ENT Exam ENT Exam: Mucous Membranes Moist - Neck Exam Neck Exam: Full ROM - Respiratory Exam Respiratory Exam: NORMAL BREATHING PATTERN. absent: Accessory Muscle Use, Respiratory Distress - GI/Abdominal Exam GI & Abdominal Exam: Soft. absent: Distended, Firm, Guarding, Rigid, Tenderness , Rebound - Extremities Exam Extremities Exam: absent: Calf Tenderness, Pedal Edema - Neurological Exam Neurological Exam: Alert, Awake Assessment and Plan - Assessment and Plan (Free Text) Assessment: 67M w. abd pain resolved and transaminitis -HIDA negative -will trend LFTs -no plans for sx at this time -d/w attending [employer] PGY4
--- NOTE | 2018-04-28 19:12 | CP.PCM.PN ---
Subjective - Date & Time of Evaluation Date of Evaluation: 04/28/18 Time of Evaluation: 19:09 - Subjective Subjective: Patinet denies abdominal pain, nausea and vomiting. Objective - Vital Signs/Intake and Output Vital Signs (last 24 hours): Temp Pulse Resp BP Pulse Ox 98.4 F 54 L 18 135/76 97 04/28/18 15:55 04/28/18 15:55 04/28/18 15:55 04/28/18 15:55 04/28/18 15:55 Intake and Output: 04/28/18 04/29/18 18:59 06:59 Intake Total 860 Balance 860 - Medications Medications: Current Medications Amlodipine Besylate (Norvasc) 5 mg PO DAILY [facility] Last Admin: 04/28/18 09:32 Dose: 5 mg Brimonidine Tartrate (Alphagan 0.2% Opht) 0 ml OU Q12 [facility] Last Admin: 04/28/18 09:30 Dose: 1 drop Dorzolamide HCl (Trusopt) 0 ml OU TID [facility] Last Admin: 04/28/18 17:38 Dose: 1 drop Heparin Sodium (Porcine) (Heparin) 5,000 units SC Q12 [facility] Last Admin: 04/28/18 13:09 Dose: 5,000 units Dextrose/Sodium Chloride (Dextrose 5%/0.9% Ns 1000 Ml) 1,000 mls @ 80 mls/hr IV .[id number] [facility] Last Admin: 04/28/18 17:09 Dose: Not Given Insulin Human Regular (Novolin R) 0 unit SC ACHS [facility] PRN Reason: Protocol Last Admin: 04/28/18 16:30 Dose: Not Given Latanoprost (Xalatan Opht) 0 ml OU HS [facility] Last Admin: 04/27/18 23:24 Dose: 2.5 ml Losartan Potassium (Cozaar) 50 mg PO DAILY [facility] Last Admin: 04/28/18 09:32 Dose: 50 mg Metformin HCl (Glucophage Xr) 750 mg PO DAILY [facility] Last Admin: 04/28/18 09:33 Dose: 750 mg Morphine Sulfate (Morphine) 2 mg IVP Q4H PRN PRN Reason: Pain, moderate (4-7) Last Admin: 04/27/18 02:54 Dose: 2 mg Pantoprazole Sodium (Protonix Inj) 40 mg IVP DAILY [facility] Last Admin: 04/28/18 09:30 Dose: 40 mg Timolol Maleate (Timoptic 0.5% Ophth Soln) 0 drop OU BID [facility] Last Admin: 04/28/18 17:38 Dose: 1 drop - Labs Labs: 04/27/18 23:48 04/28/18 11:21 PT 11.6 SECONDS (9.7-12.2) 04/26/18 22:23 INR 1.1 04/26/18 22:23 APTT 29 SECONDS (21-34) 04/26/18 22:23 - Constitutional Appears: Well, Non-toxic - Head Exam Head Exam: ATRAUMATIC, NORMAL INSPECTION, NORMOCEPHALIC - Eye Exam Eye Exam: EOMI, Normal appearance, PERRL - ENT Exam ENT Exam: Mucous Membranes Moist, Normal Exam - Neck Exam Neck Exam: Full ROM, Normal Inspection - Respiratory Exam Respiratory Exam: Clear to Ausculation Bilateral, NORMAL BREATHING PATTERN - Cardiovascular Exam Cardiovascular Exam: REGULAR RHYTHM, +S1, +S2 - GI/Abdominal Exam GI & Abdominal Exam: Soft, Normal Bowel Sounds - Extremities Exam Extremities Exam: Full ROM, Normal Capillary Refill, Normal Inspection - Back Exam Back Exam: Full ROM, NORMAL INSPECTION - Neurological Exam Neurological Exam: Alert, Awake, CN II-XII Intact, Normal Gait, Oriented x3 - Psychiatric Exam Psychiatric exam: Normal Affect, Normal Mood Assessment and Plan (1) Acute cholecystitis Assessment & Plan: ALEJANDRO. AMA. F/U Liver enzymes. Continue same treatment. Status: Acute (2) Elevated transaminase level Assessment & Plan: Continue same treatment. Status: Acute (3) Diabetes mellitus Assessment & Plan: Continue same treatment. Status: Acute (4) Hypertension Assessment & Plan: Continue same treatment. Status: Acute
[2018-04-28] MEDS: Latanoprost 2.5 ml Opht Soln OU SCH (21:23)
[2018-04-28 23:19] VITALS: RESP 20
[2018-04-29] MEDS: Dextrose 5%/0.9% NS 1,000 ML IV SCH ×3 (02:00→17:15)
[2018-04-29] MEDS: (Novolin R) Insulin Human Regular 100 units/ml vial SC SCH ×4 (08:10→21:51)
[2018-04-29 08:20] LABS: ALB/GLOB RATIO 1.4 (1.0-2.1); ALBUMIN 3.6 g/dL (3.5-5.0); ALT/SGPT 436 U/L (21-72); AST/SGOT 114 U/L (17-59); BLOOD UREA NITROGEN 9 mg/dL (9-20); CALCIUM 8.8 mg/dl (8.6-10.4); GFR AFRICAN-AMERICAN > 60; GFR NON-AFRICAN AMERICAN > 60
[2018-04-29] MEDS: Dorzolamide 2% Opht Sol 10ml OU SCH ×3 (10:56→17:46)
[2018-04-29] MEDS: Brimonidine 0.2% Opth Sol (5ml) OU SCH ×2 (10:57→21:50)
--- NOTE | 2018-04-29 12:38 | CP.PCM.PN ---
Subjective - Date & Time of Evaluation Date of Evaluation: 04/29/18 Time of Evaluation: 12:36 - Subjective Subjective: Denies abdominal pain. Tolerating clear liquids + Bloating Had BMs LFTs slowly improving Objective - Vital Signs/Intake and Output Vital Signs (last 24 hours): Temp Pulse Resp BP Pulse Ox 97.6 F 47 L 20 124/65 96 04/29/18 07:00 04/29/18 07:00 04/29/18 07:00 04/29/18 07:00 04/29/18 07:00 - Medications Medications: Current Medications Amlodipine Besylate (Norvasc) 5 mg PO DAILY [facility] Last Admin: 04/29/18 10:58 Dose: 5 mg Brimonidine Tartrate (Alphagan 0.2% Opht) 0 ml OU Q12 [facility] Last Admin: 04/29/18 10:57 Dose: 1 drop Dorzolamide HCl (Trusopt) 0 ml OU TID [facility] Last Admin: 04/29/18 10:56 Dose: 1 drop Heparin Sodium (Porcine) (Heparin) 5,000 units SC Q12 [facility] Last Admin: 04/29/18 10:58 Dose: 5,000 units Dextrose/Sodium Chloride (Dextrose 5%/0.9% Ns 1000 Ml) 1,000 mls @ 80 mls/hr IV .[id number] [facility] Last Admin: 04/29/18 11:00 Dose: 80 mls/hr Insulin Human Regular (Novolin R) 0 unit SC ACHS [facility] PRN Reason: Protocol Last Admin: 04/29/18 08:10 Dose: Not Given Latanoprost (Xalatan Opht) 0 ml OU HS [facility] Last Admin: 04/28/18 21:23 Dose: 2.5 ml Losartan Potassium (Cozaar) 50 mg PO DAILY [facility] Last Admin: 04/29/18 10:59 Dose: 50 mg Metformin HCl (Glucophage Xr) 750 mg PO DAILY [facility] Last Admin: 04/29/18 10:58 Dose: 750 mg Morphine Sulfate (Morphine) 2 mg IVP Q4H PRN PRN Reason: Pain, moderate (4-7) Last Admin: 04/27/18 02:54 Dose: 2 mg Pantoprazole Sodium (Protonix Inj) 40 mg IVP DAILY [facility] Last Admin: 04/29/18 10:58 Dose: 40 mg Timolol Maleate (Timoptic 0.5% Ophth Soln) 0 drop OU BID [facility] Last Admin: 04/29/18 10:57 Dose: 1 drop - Labs Labs: 04/27/18 23:48 04/29/18 07:48 PT 11.6 SECONDS (9.7-12.2) 04/26/18 22:23 INR 1.1 04/26/18 22:23 APTT 29 SECONDS (21-34) 04/26/18 22:23 - Constitutional Appears: Well, No Acute Distress - Head Exam Head Exam: NORMOCEPHALIC - Eye Exam Eye Exam: absent: Scleral icterus - Respiratory Exam Respiratory Exam: NORMAL BREATHING PATTERN - GI/Abdominal Exam GI & Abdominal Exam: Soft, Normal Bowel Sounds. absent: Tenderness Assessment and Plan (1) Abdominal pain Assessment & Plan: resolved advance diet to low fat Status: Acute (2) Diabetes mellitus Status: Acute (3) Elevated transaminase level Assessment & Plan: Improving Monitor Status: Acute (4) Hypertension Status: Acute
--- NOTE | 2018-04-29 20:11 | CP.PCM.PN ---
Subjective - Date & Time of Evaluation Date of Evaluation: 04/29/18 Time of Evaluation: 20:09 - Subjective Subjective: Patient denies abdominal pain, tolerating low fat diet very well. Objective - Vital Signs/Intake and Output Vital Signs (last 24 hours): Temp Pulse Resp BP Pulse Ox 97.6 F 61 20 129/81 99 04/29/18 15:12 04/29/18 15:12 04/29/18 15:12 04/29/18 15:12 04/29/18 15:12 Intake and Output: 04/29/18 04/30/18 18:59 06:59 Intake Total 1370 Balance 1370 - Medications Medications: Current Medications Amlodipine Besylate (Norvasc) 5 mg PO DAILY [facility] Last Admin: 04/29/18 10:58 Dose: 5 mg Brimonidine Tartrate (Alphagan 0.2% Opht) 0 ml OU Q12 [facility] Last Admin: 04/29/18 10:57 Dose: 1 drop Dorzolamide HCl (Trusopt) 0 ml OU TID [facility] Last Admin: 04/29/18 17:46 Dose: 1 drop Heparin Sodium (Porcine) (Heparin) 5,000 units SC Q12 [facility] Last Admin: 04/29/18 10:58 Dose: 5,000 units Dextrose/Sodium Chloride (Dextrose 5%/0.9% Ns 1000 Ml) 1,000 mls @ 80 mls/hr IV .[id number] [facility] Last Admin: 04/29/18 17:15 Dose: Not Given Insulin Human Regular (Novolin R) 0 unit SC ACHS [facility] PRN Reason: Protocol Last Admin: 04/29/18 17:30 Dose: Not Given Latanoprost (Xalatan Opht) 0 ml OU HS [facility] Last Admin: 04/28/18 21:23 Dose: 2.5 ml Losartan Potassium (Cozaar) 50 mg PO DAILY [facility] Last Admin: 04/29/18 10:59 Dose: 50 mg Metformin HCl (Glucophage Xr) 750 mg PO DAILY [facility] Last Admin: 04/29/18 10:58 Dose: 750 mg Morphine Sulfate (Morphine) 2 mg IVP Q4H PRN PRN Reason: Pain, moderate (4-7) Last Admin: 04/27/18 02:54 Dose: 2 mg Pantoprazole Sodium (Protonix Inj) 40 mg IVP DAILY [facility] Last Admin: 04/29/18 10:58 Dose: 40 mg Timolol Maleate (Timoptic 0.5% Ophth Soln) 0 drop OU BID [facility] Last Admin: 04/29/18 17:46 Dose: 1 drop - Labs Labs: 04/27/18 23:48 04/29/18 07:48 PT 11.6 SECONDS (9.7-12.2) 04/26/18 22:23 INR 1.1 04/26/18 22:23 APTT 29 SECONDS (21-34) 04/26/18 22:23 - Constitutional Appears: Well, Non-toxic, No Acute Distress - Head Exam Head Exam: ATRAUMATIC, NORMAL INSPECTION, NORMOCEPHALIC - Eye Exam Eye Exam: EOMI, Normal appearance - Neck Exam Neck Exam: Full ROM, Normal Inspection - Respiratory Exam Respiratory Exam: Clear to Ausculation Bilateral, NORMAL BREATHING PATTERN - Cardiovascular Exam Cardiovascular Exam: REGULAR RHYTHM - GI/Abdominal Exam GI & Abdominal Exam: Soft, Normal Bowel Sounds - Extremities Exam Extremities Exam: Full ROM, Normal Capillary Refill, Normal Inspection - Back Exam Back Exam: NORMAL INSPECTION - Neurological Exam Neurological Exam: Alert, Awake, CN II-XII Intact, Normal Gait, Oriented x3 Assessment and Plan (1) Acute cholecystitis Assessment & Plan: Continue PPI. D/C IV Fluids. Status: Acute (2) Elevated transaminase level Assessment & Plan: F/U Transaminase levels. Status: Acute (3) Diabetes mellitus Assessment & Plan: Continue same treatment. Status: Acute (4) Hypertension Assessment & Plan: Continue same treatment. Status: Acute
[2018-04-29] MEDS: Latanoprost 2.5 ml Opht Soln OU SCH (21:50)
[2018-04-30] MEDS: Dextrose 5%/0.9% NS 1,000 ML IV SCH (01:15)
[2018-04-30 07:24] LABS: EOS # 0.1 K/uL (0.0-0.7); EOS % 2.2 % (0.0-4.0); HEMOGLOBIN 14.6 g/dL (12.0-18.0); LYMPH # 1.6 K/uL (1.0-4.3); LYMPH % 36.8 % (20.0-40.0); MEAN CORPUSCULAR HEMOGLOBIN 31.1 pg (27.0-31.0); MEAN CORPUSCULAR HGB CONC 34.6 g/dL (33.0-37.0); MEAN PLATELET VOLUME 8.5 fL (7.2-11.7); MONO # 0.5 K/uL (0.0-0.8); MONO % 11.3 % (0.0-10.0); NEUT # 2.1 K/uL (1.8-7.0); NEUT % 48.7 % (50.0-75.0); NRBC % 0.3 % (0.0-2.0); RBC 4.69 Mil/uL (4.40-5.90); RED CELL DISTRIBUTION WIDTH 13.7 % (11.5-14.5); WHITE BLOOD COUNT 4.4 K/uL (4.8-10.8)
[2018-04-30 07:55] LABS: ALB/GLOB RATIO 1.4 (1.0-2.1); ALBUMIN 3.5 g/dL (3.5-5.0); ALT/SGPT 339 U/L (21-72); AST/SGOT 75 U/L (17-59); BLOOD UREA NITROGEN 11 mg/dL (9-20); CALCIUM 8.8 mg/dl (8.6-10.4); GFR AFRICAN-AMERICAN > 60; GFR NON-AFRICAN AMERICAN > 60
[2018-04-30] MEDS: (Novolin R) Insulin Human Regular 100 units/ml vial SC SCH ×3 (08:25→16:56)
--- NOTE | 2018-04-30 09:17 | CP.PCM.PN ---
Subjective - Date & Time of Evaluation Date of Evaluation: 04/30/18 Time of Evaluation: 09:14 - Subjective Subjective: Denies abdominal pain or nausea. Tolerating diet LFTs continue to trend down Pt provided with my contact information for office follow up Objective - Vital Signs/Intake and Output Vital Signs (last 24 hours): Temp Pulse Resp BP Pulse Ox 97.8 F 85 20 116/66 97 04/30/18 07:00 04/30/18 07:00 04/30/18 07:00 04/30/18 07:00 04/30/18 07:00 Intake and Output: 04/30/18 04/30/18 06:59 18:59 Intake Total 640 Output Total 350 Balance 290 - Medications Medications: Current Medications Amlodipine Besylate (Norvasc) 5 mg PO DAILY [facility] Last Admin: 04/29/18 10:58 Dose: 5 mg Brimonidine Tartrate (Alphagan 0.2% Opht) 0 ml OU Q12 [facility] Last Admin: 04/29/18 21:50 Dose: 1 drop Dorzolamide HCl (Trusopt) 0 ml OU TID [facility] Last Admin: 04/29/18 17:46 Dose: 1 drop Heparin Sodium (Porcine) (Heparin) 5,000 units SC Q12 [facility] Last Admin: 04/29/18 21:50 Dose: 5,000 units Insulin Human Regular (Novolin R) 0 unit SC ACHS [facility] PRN Reason: Protocol Last Admin: 04/30/18 08:25 Dose: Not Given Latanoprost (Xalatan Opht) 0 ml OU HS [facility] Last Admin: 04/29/18 21:50 Dose: 2.5 ml Losartan Potassium (Cozaar) 50 mg PO DAILY [facility] Last Admin: 04/29/18 10:59 Dose: 50 mg Metformin HCl (Glucophage Xr) 750 mg PO DAILY [facility] Last Admin: 04/29/18 10:58 Dose: 750 mg Morphine Sulfate (Morphine) 2 mg IVP Q4H PRN PRN Reason: Pain, moderate (4-7) Last Admin: 04/27/18 02:54 Dose: 2 mg Pantoprazole Sodium (Protonix Inj) 40 mg IVP DAILY [facility] Last Admin: 04/29/18 10:58 Dose: 40 mg Timolol Maleate (Timoptic 0.5% Ophth Soln) 0 drop OU BID [facility] Last Admin: 04/29/18 17:46 Dose: 1 drop - Labs Labs: 04/30/18 07:09 04/30/18 07:09 PT 11.6 SECONDS (9.7-12.2) 04/26/18 22:23 INR 1.1 04/26/18 22:23 APTT 29 SECONDS (21-34) 04/26/18 22:23 - Constitutional Appears: Well - Head Exam Head Exam: NORMOCEPHALIC - Eye Exam Eye Exam: absent: Scleral icterus - Respiratory Exam Respiratory Exam: NORMAL BREATHING PATTERN - Cardiovascular Exam Cardiovascular Exam: REGULAR RHYTHM - GI/Abdominal Exam GI & Abdominal Exam: Soft. absent: Tenderness Assessment and Plan (1) Abdominal pain Assessment & Plan: Resolved Likely passed a gallstone Follow up in office Status: Acute (2) Diabetes mellitus Status: Acute (3) Elevated transaminase level Assessment & Plan: Continues to trend downward May be discharged and follow up LFTs as outpatient Low fat diet Status: Acute (4) Hypertension Status: Acute
[2018-04-30] MEDS: Brimonidine 0.2% Opth Sol (5ml) OU SCH (09:40)
[2018-04-30] MEDS: Dorzolamide 2% Opht Sol 10ml OU SCH ×3 (09:42→17:50)
[2018-04-30 16:02] VITALS: BP 119/67; PULSE 56; TEMP 97.9; O2SAT 96
--- NOTE | 2018-04-30 18:46 | CP.PCM.DIS ---
Provider - Provider Date of Admission: 04/27/18 02:28 Attending physician: Siva Edmondson MD Primary care physician: Siva Edmondson MD Time Spent in preparation of Discharge (in minutes): 30 Diagnosis - Discharge Diagnosis (1) Acute cholecystitis Status: Resolved Priority: High (2) Elevated transaminase level Status: Acute (3) Diabetes mellitus Status: Chronic (4) Hypertension Status: Chronic Hospital Course - Lab Results Lab Results: Most Recent Lab Values WBC 4.4 K/uL (4.8-10.8) L 04/30/18 07:09 RBC 4.69 Mil/uL (4.40-5.90) 04/30/18 07:09 Hgb 14.6 g/dL (12.0-18.0) 04/30/18 07:09 Hct 42.2 % (35.0-51.0) 04/30/18 07:09 MCV 90.0 fL (80.0-94.0) 04/30/18 07:09 MCH 31.1 pg (27.0-31.0) H 04/30/18 07:09 MCHC 34.6 g/dL (33.0-37.0) 04/30/18 07:09 RDW 13.7 % (11.5-14.5) 04/30/18 07:09 Plt Count 250 K/uL (130-400) 04/30/18 07:09 MPV 8.5 fL (7.2-11.7) 04/30/18 07:09 Neut % (Auto) 48.7 % (50.0-75.0) L 04/30/18 07:09 Lymph % (Auto) 36.8 % (20.0-40.0) 04/30/18 07:09 Payne % (Auto) 11.3 % (0.0-10.0) H 04/30/18 07:09 Eos % (Auto) 2.2 % (0.0-4.0) 04/30/18 07:09 Baso % (Auto) 1.0 % (0.0-2.0) 04/30/18 07:09 Neut # (Auto) 2.1 K/uL (1.8-7.0) 04/30/18 07:09 Lymph # (Auto) 1.6 K/uL (1.0-4.3) 04/30/18 07:09 Payne # (Auto) 0.5 K/uL (0.0-0.8) 04/30/18 07:09 Eos # (Auto) 0.1 K/uL (0.0-0.7) 04/30/18 07:09 Baso # (Auto) 0.0 K/uL (0.0-0.2) 04/30/18 07:09 PT 11.6 SECONDS (9.7-12.2) 04/26/18 22:23 INR 1.1 04/26/18 22:23 APTT 29 SECONDS (21-34) 04/26/18 22:23 Sodium 143 mmol/L (132-148) 04/30/18 07:09 Potassium 4.1 mmol/L (3.6-5.2) 04/30/18 07:09 Chloride 106 mmol/L (98-107) 04/30/18 07:09 Carbon Dioxide 28 mmol/L (22-30) 04/30/18 07:09 Anion Gap 14 (10-20) 04/30/18 07:09 BUN 11 mg/dL (9-20) 04/30/18 07:09 Creatinine 1.1 mg/dL (0.8-1.5) 04/30/18 07:09 Est GFR ( Amer) > 60 04/30/18 07:09 Est GFR (Non-Af Amer) > 60 04/30/18 07:09 POC Glucose (mg/dL) 102 mg/dL (65-110) 04/30/18 16:30 Random Glucose 130 mg/dL (75-110) H 04/30/18 07:09 Calcium 8.8 mg/dl (8.6-10.4) 04/30/18 07:09 Iron 227 ug/dL (49-181) H 04/27/18 23:48 TIBC 273 ug/dL (250-450) 04/27/18 23:48 % Saturation 83 (20-55) H 04/27/18 23:48 Ferritin 163.0 ng/mL 04/27/18 23:48 Total Bilirubin 0.8 mg/dL (0.2-1.3) 04/30/18 07:09 AST 75 U/L (17-59) H D 04/30/18 07:09 ALT 339 U/L (21-72) H D 04/30/18 07:09 Alkaline Phosphatase 90 U/L (38-126) 04/30/18 07:09 Total Protein 6.1 g/dL (6.3-8.3) L 04/30/18 07:09 Albumin 3.5 g/dL (3.5-5.0) 04/30/18 07:09 Globulin 2.6 gm/dL (2.2-3.9) 04/30/18 07:09 Albumin/Globulin Ratio 1.4 (1.0-2.1) 04/30/18 07:09 Lipase 105 U/L (23-300) 04/26/18 22:23 Urine Color [place] (YELLOW) 04/26/18 22:16 Urine Clarity Hazy (Clear) 04/26/18 22:16 Urine pH 7.0 (5.0-8.0) 04/26/18 22:16 Ur Specific [place] 1.019 (1.003-1.030) 04/26/18 22:16 Urine Protein Negative mg/dL (NEGATIVE) 04/26/18 22:16 Urine Glucose (UA) Normal mg/dL (Normal) 04/26/18 22:16 Urine Ketones Negative mg/dL (NEGATIVE) 04/26/18 22:16 Urine Blood Negative (NEGATIVE) 04/26/18 22:16 Urine Nitrate Negative (NEGATIVE) 04/26/18 22:16 Urine Bilirubin Negative (NEGATIVE) 04/26/18 22:16 Urine Urobilinogen 4.0 mg/dL (0.2-1.0) 04/26/18 22:16 Ur Leukocyte Esterase Neg Debi/uL (Negative) 04/26/18 22:16 Urine WBC (Auto) 2 /hpf (0-5) 04/26/18 22:16 Urine RBC (Auto) 6 /hpf (0-3) H 04/26/18 22:16 Amorphous Sediment Rare /ul (<OCC) H 04/26/18 22:16 Urine Yeast (Budding) Occ /hpf (NEGATIVE) H 04/26/18 22:16 Hepatitis A Ab Total Antibody positive (NEGATIVE) 04/27/18 23:48 Hep Bs Antigen Negative (NEGATIVE) 04/27/18 23:48 Hep B Core IgM Ab Negative (NEGATIVE) 04/27/18 23:48 Hepatitis Be Antigen Non-reactive (Non-reactive) 04/27/18 07:32 Hepatitis C Antibody Negative (NEGATIVE) 04/27/18 23:48 - Hospital Course Hospital Course: 67 years old male with PMH significant for HTN, Type II and Hyperlipidemia who presented to the Hospital with acute onset of Abdominal pain. CT scan of the Abdomen showed Contracted Gallbladder. GI and Surgical evaluation requested. IV Fluids started. NPO. Diet advanced lo liquid diet. Transaminase levels trend down. Diet advanced to low fat diet. Patient condition improved and he was discharged home in stable condition. - Date & Time of H&P Date of H&P: 04/30/18 Time of H&P: 18:46 Discharge Exam - Head Exam Head Exam: ATRAUMATIC, NORMAL INSPECTION, NORMOCEPHALIC - Eye Exam Eye Exam: EOMI, Normal appearance, PERRL - Neck Exam Neck exam: Full Rom, Normal Inspection - Respiratory Exam Respiratory Exam: Clear to PA & Lateral, NORMAL BREATHING PATTERN, UNREMARKABLE - Cardiovascular Exam Cardiovascular Exam: REGULAR RHYTHM, +S1, +S2 - GI/Abdominal Exam GI & Abdominal Exam: Normal Bowel Sounds, Soft, Unremarkable - Extremities Exam Extremities exam: full ROM, normal inspection - Neurological Exam Neurological exam: Alert, CN II-XII Intact, Normal Gait, Oriented x3, Reflexes Normal - Psychiatric Exam Psychiatric exam: Normal Affect, Normal Mood - Skin Skin Exam: Intact, Normal Color Discharge Plan - Follow Up Plan Condition: FAIR Disposition: HOME/ ROUTINE Instructions: Low Cholesterol, Saturated Fat, and Trans Fat Diet , Cholecystitis (DC), Acute Abdominal Pain (DC), Acute Abdominal Pain (GEN), Cholecystitis (GEN), Hypertension (DC), Hypertension (GEN) Referrals: Siva Edmondson MD [Primary Care Provider] -
[2018-05-01] MEDS ORDERED: BRIMONIDINE 0.15% OU SCH (10:00)
[2018-05-01] MEDS ORDERED: [UNRECOGNIZED DRUG - OTHER] BOTHEYES SCH (10:00)
== END 2018-04-30 19:28 | disposition home or self-care (01) | DRG 446 ==
LOC: C.ER 21:05 → SUPCPDRO 21:05 → C.5S 04-27 02:28
PROVIDERS: ADMIT Internal Medicine; ATTEND Internal Medicine
DX: K81.0 Acute cholecystitis (principal); E11.9 Type 2 diabetes mellitus without complications; E78.5 Hyperlipidemia, unspecified; I10 Essential (primary) hypertension; H40.9 Unspecified glaucoma